=== PATIENT | male | born 1970 | race Caucasian/White ===

== ENCOUNTER → 2017-04-01 | Outpatient (CLI) | payer OTHER ==
[2015-11-28 16:03] VITALS: BP 144/85
[~2017-04-01] MED LIST: CITA40TA12 PO; GABA-586 PO; HYDR-2666 PO; SIMV20TA PO
--- NOTE | 2017-04-01 16:08 | RAD ---
Lumbar spine, 3 views, 04/01/2017: History: Chronic low back pain There is a mild right convexity lumbar scoliosis. There is a transitional-type vertebra at the lumbosacral junction level. No fracture or dislocation is identified. There are mild scattered marginal spurs. There are mild degenerative changes involving the facet joints in the lower lumbar spine. The paraspinous soft tissues are unremarkable. IMPRESSION: 1. Transitional-type vertebra at the lumbosacral junction. 2. Mild scattered degenerative changes. 3. Mild lumbar scoliosis
--- NOTE | 2017-04-01 16:09 | RAD ---
Cervical spine, 3 views, 04/01/2017: History: Chronic neck pain There is mild disc space narrowing and marginal spurring at C6-7 and C7-T1. There is mild posterior spurring at C3-4. There are mild to moderate degenerative changes involving scattered facet joints bilaterally. No acute fracture or dislocation is identified. The prevertebral soft tissues are unremarkable. IMPRESSION: 1. Mild to moderate scattered degenerative changes as described above. 2. No acute bony abnormality is detected.
== END | disposition home or self-care (01) ==
LOC: RAD 15:24
PROVIDERS: ATTEND Family Medicine
DX: M47.892 Other spondylosis, cervical region (principal); M54.9 Dorsalgia, unspecified; M41.86 Other forms of scoliosis, lumbar region
CPT/HCPCS: 72040; 72100

== ENCOUNTER → 2017-05-05 | Outpatient (CLI) | payer OTHER ==
[2015-11-28 16:03] VITALS: BP 144/85
[~2017-05-05] MED LIST changes: -HYDR-2666 PO; +HYDR-2758 PO
--- NOTE | 2017-05-05 09:49 | KCIC ---
MRI Cervical Spine Without Contrast History: Chronic neck pain, bilateral radiculopathy Technique: Multiplanar, multi sequential noncontrast MR imaging was performed of the cervical spine. Comparison: None Findings: There is motion degradation. Cervical cord caliber is within normal limits without obvious or expansile signal abnormality. There is moderate degenerative disc disease greater anteriorly C6-7. There is no significant abnormality of the cervical medullary junction. Vertebral body stature and AP alignment are adequate. There is no significant marrow edema. C2-C3: There is minimal disc osteophyte complex and protrusion eccentric to the far left lateral recess, very minimal narrowing of the far left lateral recess. There is left uncovertebral degenerative change. There is mjon-vs-detpsjeh narrowing of the left neural foramen, right normal foramen adequate. C3-C4: There is minimal disc osteophyte complex and bulge somewhat greater in the far left lateral recess. Central canal is adequate at 11 mm, mild indentation upon the ventral thecal sac in the far left lateral recess. There is uncovertebral degenerative change bilaterally greater on the left. There is moderate left facet degenerative change. There is fairly severe narrowing of the left neural foramen, mild to moderate narrowing on the right. C4-C5: Neural foramina and spinal canal are adequate. There is mild right facet hypertrophic change. C5-C6: Neural foramina and spinal canal are adequate. There is mild bilateral facet degenerative change. C6-C7: There is negligible disc osteophyte complex and bulge. Central canal is adequate 12 mm. There is mild uncovertebral degenerative change. There is [id number]-[id number] left and mild right neural foramina compromise. C7-T1: Neural foramina and spinal canal are adequate. Impression: 1. There is no significant cervical spinal stenosis, very mild narrowing of the far left lateral recess at C2-3. 2. There is multilevel facet and uncovertebral degenerative change, results in severe narrowing of the left C3-4 neural foramen, other ucrr-[id number] narrowing such as on the left at C2-3 and C6-7 and on the right at C3-4. 3. There is moderate degenerative disc disease greater anteriorly at C6-7. Electronically signed by: Ke Briones MD (05/05/2017 9:46 AM)
--- NOTE | 2017-05-05 10:00 | KCIC ---
MRI Lumbar Spine without contrast History: Lumbar stenosis, previous surgery 2011, numbness in feet Technique: Multiplanar, multi sequential noncontrast MR imaging was performed of the lumbar spine. Contrast: None Comparison: March 02, 2014 Findings: There again appears to be transitional anatomy. Most inferior fully formed intervertebral disc space is again considered L5-S1. Lumbar vertebral body stature and AP alignment are maintained. There is again tmyd-[id number] degenerative disc disease at L5-S1. Conus terminates normally at L1-L2. There is no significant marrow edema. L2-L3: Spinal canal and neural foramina are adequate. L3-L4: Neural foramina and spinal canal are adequate. There is mild facet hypertrophic change. L4-L5: There is mild facet hypertrophic change. Spinal canal and neural foramina are adequate. L5-S1: No contrast was given to evaluate for underlying enhancing fibrosis. There is again disc osteophyte complex, superimposed minimal probable bulge as seen previously without significant impingement of the descending S1 nerve roots. There is no significant narrowing of the lateral canal. There is very mild, right greater than left neural foramina compromise. Impression: 1. Findings are similar compared with 2013 exam. There again appears to be transitional anatomy with the most inferior fully formed intervertebral disc space considered L5-S1 at which there is vdnf-rw-kwavzieu degenerative disc disease and mild spondylosis. There is no new significant lumbar spinal stenosis. There is very mild L5-S1 neural foramina compromise greater on the right. Electronically signed by: Ke Briones MD (05/05/2017 9:57 AM)
== END | disposition home or self-care (01) ==
LOC: KCIC MRI 08:33
PROVIDERS: ATTEND Family Medicine
DX: M48.06 Spinal stenosis, lumbar region (principal); M50.321 Other cervical disc degeneration at C4-C5 level; M50.322 Other cervical disc degeneration at C5-C6 level; M50.323 Other cervical disc degeneration at C6-C7 level
CPT/HCPCS: 72141; 72148

== ENCOUNTER → 2017-07-02 | Outpatient (CLI) | payer OTHER ==
[2015-11-28 16:03] VITALS: BP 144/85
--- NOTE | 2017-07-02 16:38 | RAD ---
Left knee, 3 views, 07/02/2017: History: Postop evaluation Comparison is made to a study from 11/13/2015. A total knee prosthesis has been placed. It appears to be in satisfactory position. No fracture or dislocation is evident. A couple of small periarticular radiopacities are noted posteriorly compatible with cement and/or a bone fragment. There is moderate soft tissue swelling anteriorly. IMPRESSION: 1. The left total knee prosthesis is in satisfactory position. 2. No acute bony abnormality is detected.
== END | disposition home or self-care (01) ==
LOC: RAD 14:57
PROVIDERS: ATTEND Orthopaedic Surgery
DX: M79.89 Other specified soft tissue disorders (principal); Z96.652 Presence of left artificial knee joint
CPT/HCPCS: 73562

== ENCOUNTER 2018-11-02 15:12 | Emergency (ER) | payer OTHER ==
[~2018-11-02] VITALS: Ht 188 cm; Wt 120.2 kg
[~2018-11-02 15:12] MED LIST changes: -GABA-586 PO; +GABA300C18 PO; -HYDR-2758 PO; +HYDR-2761 PO
[2018-11-02 16:21] VITALS: BP 149/75
[2018-11-02] MEDS ORDERED: DIPHTH,PERTUSS(ACELL),TET TOX 0.5 ML DISP.SYRIN. VAX IM ONE (17:00)
[2018-11-02] MEDS ORDERED: LIDOCAINE 1% Multi-Dose 20 ML VIAL. INJ ONE (17:00)
--- NOTE | 2018-11-02 18:09 | PHYS DOC ---
Past Medical History Past Medical History: Depression, High Cholesterol, Hypertension, Other Additional Past Medical Histor: chronic pain Past Surgical History: Tonsillectomy, Other Additional Past Surgical Histo: shoulder sx x3,bilat knee sx x3, sinus sx, back sx Alcohol Use: Rarely Drug Use: None Adult General Chief Complaint Chief Complaint: LACERATION/AVULSION HPI HPI Patient is a 48 year old [f__sex] who presents with [] Review of Systems Review of Systems Constitutional: Denies fever or chills [] Eyes: Denies change in visual acuity, redness, or eye pain [] HENT: Denies nasal congestion or sore throat [] Respiratory: Denies cough or shortness of breath [] Cardiovascular: No additional information not addressed in HPI [] GI: Denies abdominal pain, nausea, vomiting, bloody stools or diarrhea [] : Denies dysuria or hematuria [] Musculoskeletal: Denies back pain or joint pain [] Integument: Denies rash or skin lesions [] Neurologic: Denies headache, focal weakness or sensory changes [] Endocrine: Denies polyuria or polydipsia [] All other systems were reviewed and found to be within normal limits, except as documented in this note. Current Medications Current Medications Current Medications Medications (Trade) Dose Ordered Sig/Nat Start Time Stop Time Status Last Admin Dose Admin Diphtheria/ Tetanus/Acell Pertussis (Boostrix) 0.5 ml ONCE ONCE 18 17:00 18 17:01 DC 18 17:36 0.5 ML Lidocaine HCl (Lidocaine 1% 20ml Vial) 20 ml 1X ONCE 11/02/18 17:00 18 17:01 DC 18 17:32 20 ML Allergies Allergies Allergies Coded Allergies Type Severity Reaction Last Updated Verified No Known Drug Allergies 03/02/14 No Physical Exam Physical Exam Constitutional: Well developed, well nourished, no acute distress, non-toxic appearance. [] HENT: Normocephalic, atraumatic, bilateral external ears normal, oropharynx moist, no oral exudates, nose normal. [] Eyes: PERRLA, EOMI, conjunctiva normal, no discharge. [] Neck: Normal range of motion, no tenderness, supple, no stridor. [] Cardiovascular:Heart rate regular rhythm, no murmur [] Lungs & Thorax: Bilateral breath sounds clear to auscultation [] Abdomen: Bowel sounds normal, soft, no tenderness, no masses, no pulsatile masses. [] Skin: Warm, dry, no erythema, no rash. [] Back: No tenderness, no CVA tenderness. [] Extremities: No tenderness, no cyanosis, no clubbing, ROM intact, no edema. [] Neurologic: Alert and oriented X 3, normal motor function, normal sensory function, no focal deficits noted. [] Psychologic: Affect normal, judgement normal, mood normal. [] Laceration Repair by me: 2200 Anesthesia: 1% lidocaine locally Location: Tendon/Joint/Nerves: No injury Foreign body: None detected after copious irrigation and exploration Technique: Simple Interrupted Sutures #2 5.0 nylon Complexity: No subcutaneous sutures/mucosal repair/edge excision Post Closure Length: 2 cm Patient's bleeding was easily controlled in the department and there is no indication of anemia. No evidence of compartment syndrome, neurologic injury, vascular injury, open joint, tendon laceration, or foreign body. Patient is appropriate for outpatient follow up. 48 hour wound check. Scar minimization instructions given. Current Patient Data Vital Signs Vital Signs Date Time Temp Pulse Resp B/P (MAP) Pulse Ox O2 Delivery O2 Flow Rate FiO2 11/02/18 16:21 98.7 92 16 149/75 (99) 98 Room Air 98.7 EKG EKG [] Radiology/Procedures Radiology/Procedures [] Course & Med Decision Making Course & Med Decision Making Pertinent Labs and Imaging studies reviewed. (See chart for details) [] Dragon Disclaimer Dragon Disclaimer This electronic medical record was generated, in whole or in part, using a voice recognition dictation system. Departure Departure Impression: Primary Impression: Laceration of left index finger Disposition: HOME, SELF-CARE Condition: STABLE Referrals: UNKNOWN PCP NAME (PCP) Patient Instructions: Laceration Care, Adult, Sutured Wound Care Additional Instructions: Monitor wound for signs of infection. Wear aluminum splint to support laceration site. Remove splint daily and perform range of motion with left index finger to prevent joint stiffness or locking. Follow-up with primary care physician in 7 days for suture removal. Tylenol and/or ibuprofen as needed for pain as directed on container. You can apply thin layer of triple antibiotic ointment to wound site twice a day until sutures are removed. SHANT CONTEH APRN Nov 02, 2018 18:09
== END 2018-11-02 18:15 | disposition home or self-care (01) ==
LOC: ER 15:12
DX: S61.211A Laceration without foreign body of left index finger without damage to nail, initial encounter (principal); E78.00 Pure hypercholesterolemia, unspecified; I10 Essential (primary) hypertension; G89.29 Other chronic pain; W27.8XXA Contact with other nonpowered hand tool, initial encounter; Y93.89 Activity, other specified; Y92.89 Other specified places as the place of occurrence of the external cause; Y99.8 Other external cause status
CPT/HCPCS: 12001; 90471; 90715; 99283-25

== ENCOUNTER 2019-05-15 16:04 | Emergency (ER) | payer OTHER ==
[~2019-05-15] VITALS: Ht 188 cm; Wt 115.7 kg
[2019-05-15 16:12] VITALS: BP 157/88
--- NOTE | 2019-05-15 16:43 | PHYS DOC ---
Past Medical History Past Medical History: Depression, High Cholesterol, Hypertension, Other Additional Past Medical Histor: chronic pain Past Surgical History: Tonsillectomy, Other Additional Past Surgical Histo: shoulder sx x3,bilat knee sx x3, sinus sx, back sx Alcohol Use: Rarely Drug Use: None Adult General Chief Complaint Chief Complaint: ANKLE PROBLEM HPI HPI Patient is a 49 year old male that presents with right ankle pain. The patient states that he felt a pop in his ankle when walking on Friday after he tripped and turned it. States he is turned 3 other times since that point including today. Rates his pain as 9 out of 10 in severity. The patient states he took a meloxicam at 2 PM today. Review of Systems Review of Systems Constitutional: Denies fever or chills [] Eyes: Denies change in visual acuity, redness, or eye pain [] HENT: Denies nasal congestion or sore throat [] Respiratory: Denies cough or shortness of breath [] Cardiovascular: No additional information not addressed in HPI [] GI: Denies abdominal pain, nausea, vomiting, bloody stools or diarrhea [] : Denies dysuria or hematuria [] Musculoskeletal: Denies back pain but reports R ankle pain. Integument: Denies rash or skin lesions [] Neurologic: Denies headache, focal weakness or sensory changes [] Endocrine: Denies polyuria or polydipsia [] Complete systems were reviewed and found to be within normal limits, except as documented in this note. Current Medications Current Medications Current Medications Medications (Trade) Dose Ordered Sig/Nat Start Time Stop Time Status Last Admin Dose Admin Acetaminophen/ Hydrocodone Bitart (Lortab 5/325) 1 tab 1X ONCE 05/15/19 16:45 05/15/19 16:46 DC 05/15/19 16:48 1 TAB Allergies Allergies Allergies Coded Allergies Type Severity Reaction Last Updated Verified No Known Drug Allergies 03/02/14 No Physical Exam Physical Exam Constitutional: Well developed, well nourished, no acute distress, non-toxic appearance. [] HENT: Normocephalic, atraumatic, bilateral external ears normal, oropharynx moist, no oral exudates, nose normal. [] Eyes: PERRLA, EOMI, conjunctiva normal, no discharge. [] Neck: Normal range of motion, no tenderness, supple, no stridor. [] Cardiovascular:Heart rate regular rhythm, no murmur [] Lungs & Thorax: Bilateral breath sounds clear to auscultation [] Abdomen: Bowel sounds normal, soft, no tenderness, no masses, no pulsatile masses. [] Skin: Warm, dry, no erythema, no rash. [] Back: No tenderness, no CVA tenderness. [] Extremities: Tenderness to R ankle, has edema, tenderness is to lateral side.[] Neurologic: Alert and oriented X 3, normal motor function, normal sensory function, no focal deficits noted. [] Psychologic: Affect normal, judgement normal, mood normal. [] Current Patient Data Vital Signs Vital Signs Date Time Temp Pulse Resp B/P (MAP) Pulse Ox O2 Delivery O2 Flow Rate FiO2 05/15/19 16:12 98.6 97 16 157/88 (111) 96 Room Air 98.6 EKG EKG [] Radiology/Procedures Radiology/Procedures X-ray interpreted by Dr. Sosa No acute findings.[] PATIENT: CIARRA JUARES ACCOUNT: [id number] : 1970 LOCATION: ER AGE: 49 SEX: M EXAM STATUS: REG ER ORD. PHYSICIAN: JESSICA JEAN APRN REASON: Twisred ankle, pain PROCEDURE: ANKLE RIGHT 3V Right ankle 3 views. HISTORY: Pain, twisted ankle 3 views were taken of the right ankle there is no acute fracture or osseous abnormality. IMPRESSION: 1. No acute fracture noted in the right ankle. Electronically signed by: José Sullivan MD (05/15/2019 5:27 PM) [facility] [place] Course & Med Decision Making Course & Med Decision Making Pertinent Labs and Imaging studies reviewed. (See chart for details) Will order an x-ray and give [place] for relief of pain. X-ray is negative. Will d/c home. Will place in carlos wrap. Gave discharge instructions for RICE. Will also give crutches. Dragon Disclaimer Dragon Disclaimer This electronic medical record was generated, in whole or in part, using a voice recognition dictation system. Departure Departure Impression: Primary Impression: Ankle pain, right Disposition: 01 HOME, SELF-CARE Condition: STABLE Referrals: JESSICA EDWARDS MD (PCP) JAGRUTI TOSCANO MD Patient Instructions: Ankle Pain, Elastic Bandage and RICE Additional Instructions: Thank you for visiting [facility]. We appreciate you trusting us with your care. If any additional problems come up don't hesitate to return to visit us. Please follow up with your primary care provider so they can plan additional care if needed and know about the problem that you had. If symptoms worsen come back to the Emergency Department. Any concerning symptoms that start such as chest pain, shortness of Air, weakness or numbness on one side of the body, running high fevers or any other concerning symptoms return to the ER. If pain persists, please follow up with your primary care doctor and/or orthopedics. Problem Qualifiers Primary Impression: Ankle pain, right Chronicity: acute Qualified Codes: M25.571 - Pain in right ankle and joints of right foot JESSICA JEAN APRN May 15, 2019 16:43
[2019-05-15] MEDS ORDERED: HYDROcodone/APAP 5/325MG 1 TAB TABLET PO ONE (16:45)
--- NOTE | 2019-05-15 17:30 | RAD ---
Right ankle 3 views. HISTORY: Pain, twisted ankle 3 views were taken of the right ankle there is no acute fracture or osseous abnormality. IMPRESSION: 1. No acute fracture noted in the right ankle. Electronically signed by: José Sullivan MD (05/15/2019 5:27 PM) [id number]
== END 2019-05-15 17:30 | disposition home or self-care (01) ==
LOC: ER 16:04
DX: M25.571 Pain in right ankle and joints of right foot (principal); G89.29 Other chronic pain; I10 Essential (primary) hypertension; E78.00 Pure hypercholesterolemia, unspecified; Z98.890 Other specified postprocedural states
CPT/HCPCS: 29515; 73610; 99284-25

== ENCOUNTER 2020-10-09 10:15 | Emergency (ER) | payer OTHER ==
[~2020-10-09] VITALS: Ht 188 cm; Wt 115.0 kg
[2020-10-09 11:47] VITALS: BP 164/85
[2020-10-09] MEDS ORDERED: TETANUS AND DIPHTHERIA TOX/PF 0.5 ML DISP.SYRIN. VAX IM ONE (12:00)
[2020-10-09] MEDS ORDERED: PIPERACILLIN/TAZOBACTAM 3.375 GM in IV NORMAL SALINE 50ML 50 ML IV ONE (12:00)
--- NOTE | 2020-10-09 12:43 | RAD ---
Study: CR HAND RIGHT 3V Indication: Hand laceration. Comparison: None. Findings: Laceration seen at the dorsum of the hand at the level of the metacarpophalangeal joints. No associated fracture or retained radiopaque foreign body. No findings by radiography that would suggest full-thickness extensor tendon disruption but this would be better assessed clinically. Impression: Dorsal hand laceration at the level of the MCP joints without an associated fracture or retained radiopaque foreign body. Electronically signed by: NATHAN FLOYD MD (10/09/2020 12:40 PM) [id number]
--- NOTE | 2020-10-09 12:50 | PHYS DOC ---
Past Medical History Past Medical History: Depression, High Cholesterol, Hypertension, Other Additional Past Medical Histor: chronic pain Past Surgical History: Tonsillectomy, Other Additional Past Surgical Histo: shoulder sx x3,bilat knee sx x3, sinus sx, back sx Smoking Status: Never Smoker Alcohol Use: Rarely Drug Use: None General Adult EDM: Chief Complaint: LACERATION/AVULSION HPI: HPI: Patient is a 50 year old male with history of depression, hypertension, high cholesterol, who presents to the ED today with right hand lacerations. Patient has a laceration on the right middle finger knuckle as well as right index finger. Patient states he was hanging a picture and tried pushing on the glass part of the frame he broke it driving his hand into the glass. He is right handed. Review of Systems: Review of Systems: Constitutional: Denies fever or chills. [] Musculoskeletal: Denies back pain or joint pain. [] Integument: Reports right hand lacerations Neurologic: Denies headache, focal weakness or sensory changes. [] Psychiatric: Denies depression or anxiety. [] Heart Score: Risk Factors: Risk Factors: DM, Current or recent (<one month) smoker, HTN, HLP, family history of CAD, obesity. Risk Scores: Score 0 - 3: 2.5% MACE over next 6 weeks - Discharge Home Score 4 - 6: 20.3% MACE over next 6 weeks - Admit for Clinical Observation Score 7 - 10: 72.7% MACE over next 6 weeks - Early Invasive Strategies Current Medications: Current Medications Medications (Trade) Dose Ordered Sig/[facility] Start Time Stop Time Status Last Admin Dose Admin Morphine Sulfate (Morphine Sulfate) 5 mg 1X ONCE 10/09/20 13:15 10/09/20 13:16 10/09/20 12:41 5 MG Piperacillin Sod/ Tazobactam Sod 3.375 gm/Sodium Chloride 50 ml @ 100 mls/hr 1X ONCE 10/09/20 12:00 10/09/20 12:29 DC 10/09/20 12:33 100 MLS/HR Tetanus/ Diphtheria Toxoids (Tenivac Syringe) 0.5 ml ONCE ONCE 10/09/20 12:00 10/09/20 12:07 DC 10/09/20 12:37 0.5 ML Allergies: Allergies: Allergies Coded Allergies Type Severity Reaction Last Updated Verified No Known Drug Allergies 03/02/14 No Physical Exam: PE: Constitutional: Well developed, well nourished, no acute distress, non-toxic appearance. [] Skin: Right index finger PIP joint with a laceration approximately 2 cm long, there is no obvious tendon involvement. Patient able to flex and extend the finger with no difficulties. Adequate radial sensation to the right index finge r. Right knuckle with a laceration approximately 3 cm long with obvious tendon cut. Patient's finger is in lax position and he is unable to extend it completely. He appears to have cut his extensor tendon. He has adequate sensation to the right middle finger. +2 right radial pulse. Cap refill less than 2 seconds the right fingers. Back: No tenderness, no CVA tenderness. [] Extremities: No tenderness, no cyanosis, no clubbing, ROM intact, no edema. [] Neurologic: Alert and oriented X 3, normal motor function, normal sensory function, no focal deficits noted. [] Psychologic: Affect normal, judgement normal, mood normal. [] Current Patient Data: Vital Signs: Vital Signs Date Time Temp Pulse Resp B/P (MAP) Pulse Ox O2 Delivery O2 Flow Rate FiO2 10/09/20 12:41 16 100 Room Air 10/09/20 11:47 98.7 62 164/85 (111) 98.7 EKG: EKG: [] Radiology/Procedures: Radiology/Procedures: []PROCEDURE: HAND RIGHT 3V Study: CR HAND RIGHT 3V Indication: Hand laceration. Comparison: None. Findings: Laceration seen at the dorsum of the hand at the level of the metacarpophalangeal joints. No associated fracture or retained radiopaque foreign body. No findings by radiography that would suggest full-thickness extensor tendon disruption but this would be better assessed clinically. Impression: Dorsal hand laceration at the level of the MCP joints without an associated fracture or retained radiopaque foreign body. Electronically signed by: NATHAN FLOYD MD (10/09/2020 12:40 PM) [id number] DICTATED and SIGNED BY: NATHAN FLOYD MD DATE: 10/09/20 [id number] 0 Course & Med Decision Making: Course & Med Decision Making Pertinent Labs and Imaging studies reviewed. (See chart for details) This is a 50-year-old male patient with right hand lacerations. One laceration on the right index finger, the other laceration on the right middle finger knuckle. Right middle finger knuckle has extensor tendon tear. Patient unable to extend the finger. Right hand x-rays are negative for any acute findings. He was given Zosyn and 2 doses of morphine in the ED as well as a tetanus shot. [id number] Spoke with who accepted patient at [facility]. Aamir Disclaimer: Aamir Disclaimer: This electronic medical record was generated, in whole or in part, using a voice recognition dictation system. Departure Departure Impression: Primary Impression: Laceration of right index finger Qualified Codes: S61.210A - Laceration without foreign body of right index finger without damage to nail, initial encounter Additional Impressions: Laceration of right middle finger Qualified Codes: S61.312A - Laceration without foreign body of right middle finger with damage to nail, initial encounter Laceration of finger, right, with tendon Qualified Codes: S61.219A - Laceration without foreign body of unspecified finger without damage to nail, initial encounter Disposition: 05 DC/TRF OTHER TYPE INSTITUTI Condition: STABLE Referrals: SADE SALAZAR MD (PCP) [facility] [employer] Oct 09, 2020 12:50
[2020-10-09] MEDS ORDERED: MORPHINE SULFATE 10 MG/ML VIAL. IV ONE ×2 (13:15→13:30)
== END 2020-10-09 14:27 | disposition short-term general hospital (02) ==
LOC: ER 10:15
DX: S61.312A Laceration without foreign body of right middle finger with damage to nail, initial encounter (principal); R20.2 Paresthesia of skin; F32.9 Major depressive disorder, single episode, unspecified; E78.00 Pure hypercholesterolemia, unspecified; I10 Essential (primary) hypertension; G89.29 Other chronic pain; Z90.89 Acquired absence of other organs; Z98.890 Other specified postprocedural states; W25.XXXA Contact with sharp glass, initial encounter; Y93.89 Activity, other specified; Y92.89 Other specified places as the place of occurrence of the external cause; Y99.8 Other external cause status
CPT/HCPCS: 73130; 90471; 90714; 96365; 96375; 96376; 99285; J2270; J2543

== ENCOUNTER → 2021-01-24 | Outpatient (CLI) | payer OTHER ==
--- NOTE | 2021-01-24 09:13 | RAD ---
EXAM: Right knee, 2 views. HISTORY: Pain. Disability determination. COMPARISON: None. FINDINGS: 2 views of the right knee are obtained. There is no fracture, dislocation or subluxation. T here is no joint effusion. IMPRESSION: No acute osseous finding. Electronically signed by: Tianna Aguirre MD (01/24/2021 9:10 AM) [id number]
== END ==
LOC: RAD 08:34
PROVIDERS: ATTEND Family Medicine
DX: M25.561 Pain in right knee (principal)
CPT/HCPCS: 73560

== ENCOUNTER 2021-07-25 01:02 | Emergency (ER) | payer OTHER ==
[~2021-07-25] VITALS: Ht 188 cm; Wt 120.5 kg
[2021-07-25] MEDS ORDERED: DIPH,PERTUSS(ACELL),TET VAC/PF 0.5 ML SYRINGE. VAX IM ONE (02:15)
[2021-07-25 02:39] VITALS: BP 115/58
[2021-07-25] MEDS ORDERED: AMOX1TAB61 PO (02:48)
--- NOTE | 2021-07-25 02:48 | PHYS DOC ---
Past Medical History Past Medical History: Depression, High Cholesterol, Hypertension, Other Additional Past Medical Histor: chronic pain Past Surgical History: Tonsillectomy, Other Additional Past Surgical Histo: shoulder sx x3,bilat knee sx x3, sinus sx, back sx Smoking Status: Never Smoker Alcohol Use: Rarely Drug Use: None General Adult EDM: Chief Complaint: ANIMAL BITE HPI: HPI: 51 yo M HTN, HLD, depression and insomnia presents to the ED with at bedside, (patient consents to his/her/their knowledge and involvement in pts' medical care), complaints of dog bite that occurred to the dorsum of his right foot just prior to ED arrival, around midnight. Patient was bitten by his own 4yo bull mastiff. Reports dogs' vaccinations are up-to-date including rabies and dog has been acting appropriately. Last tetanus was approximately 6 years ago. Reports he attempted cleaning his right foot with peroxide, then liquid bandage and then tape. Reports he took his Ambien prior to coming to the emergency department. Is up-to-date on his Covid vaccine. Review of Systems: Review of Systems: Constitutional: Denies fever or chills. [] Eyes: Denies change in visual acuity. [] HENT: Denies nasal congestion or sore throat. [] Respiratory: Denies cough or shortness of breath. [] Cardiovascular: Denies chest pain or edema. [] GI: Denies nausea, vomiting, Musculoskeletal: Denies back pain or joint swelling/deformity Integument: Denies rash or diaphoresis Neurologic: Denies focal weakness or sensory changes. [] Psychiatric: Denies depression or anxiety. [] Heart Score: C/O Chest Pain: No Risk Factors: Risk Factors: DM, Current or recent (<one month) smoker, HTN, HLP, family history of CAD, obesity. Risk Scores: Score 0 - 3: 2.5% MACE over next 6 weeks - Discharge Home Score 4 - 6: 20.3% MACE over next 6 weeks - Admit for Clinical Observation Score 7 - 10: 72.7% MACE over next 6 weeks - Early Invasive Strategies Current Medications: Current Medications Medications (Trade) Dose Ordered Sig/Nat Start Time Stop Time Status Last Admin Dose Admin Diphtheria/ Tetanus/Acell Pertussis (ADACEL TDap SYRINGE) 0.5 ml ONCE ONCE 07/25/21 02:15 07/25/21 02:16 DC Allergies: Allergies: Allergies Coded Allergies Type Severity Reaction Last Updated Verified No Known Drug Allergies 03/02/14 No Physical Exam: PE: Constitutional: Well developed, well nourished, no acute distress, non-toxic appearance. HENT: Normocephalic, atraumatic, Eyes: EOMI, conjunctiva normal, no discharge. Neck: Normal range of motion, supple, Cardiovascular: S1/2 present, regular rhythm Lungs & Thorax: Speaking in full sentences, bilateral equal chest rise, no tachypnea or increased work of breathing Skin: Warm, dry, no erythema, no rash. [] Extremities: 1.5-2cm abrasion over dorsum of patient's right mid foot with no underlying bone tenderness, right DP/PT pulses intact,No plantar ecchymosis sign Neurologic: Alert and oriented X 3, normal motor function, normal sensory function, no focal deficits noted. [] Psychologic: Affect normal, judgement normal, mood-joyish/happy/very active Current Patient Data: Vital Signs: Vital Signs Date Time Temp Pulse Resp B/P (MAP) Pulse Ox O2 Delivery O2 Flow Rate FiO2 07/25/21 01:40 106 20 116/76 (89) 96 Room Air 07/25/21 01:15 98.6 98.6 EKG: EKG: [] Radiology/Procedures: Radiology/Procedures: IMAGING REPORT Signed PATIENT: CIARRA JUARES ACCOUNT: [id number] : 1970 LOCATION: ER AGE: 51 SEX: M EXAM STATUS: DEP ER ORD. PHYSICIAN: SHANT GLASS DO REASON: dog bite PROCEDURE: FOOT RIGHT 3V XR FOOT_RIGHT 3 VIEWS History: Dog bite Comparison: None. Technique: 3 views of the right foot. Findings: Osseous mineralization is normal. No fracture or dislocaton. Mild degenerative changes of the anterior tibiotalar joint. Small plantar calcaneal enthesophyte. Bipartite medial first MTP sesamoid. Soft tissues are unremarkable. No radiopaque foreign body or subcutaneous emphysema. Impression: 1. No acute osseous abnormality of the right foot. No radiopaque foreign body. Electronically signed by: Ronal Farrell MD (07/25/2021 7:12 AM) [facility] DICTATED and SIGNED BY: RONAL FARRELL MD DATE: 07/25/21 [id number] 0 Course & Med Decision Making: Course & Med Decision Making Pertinent Labs and Imaging studies reviewed. (See chart for details) Concern for dog bite to right foot with no fracture seen on x-ray. Wound copiously irrigated and dressed. Patient was given wound care instructions for secondary intention. Will discharge home with strict ED return precautions were given for rash, fever, purulent drainage, worsening pain repeat injury. Encouraged urgent outpatient follow-up with PMD 1 to 2 days for wound check evaluation. Life-threatening processes were considered but are low suspicion at this time, given history, physical exam and ED workup. Pt was educated on all prescription medications and adverse effects. All patient's questions were answered and pt was stable at time of discharge. Life/limb-threatening differential includes but is not limited to, trauma (fracture, dislocation, laceration, compartment syndrome, tendon or ligament injury), neurovascular injury or deficitcva/tia, infection (osteomyelitis, abscess, cellulitis, septic arthritis, necrotizing fasciitis), deep vein thrombosis, renal/cardiac/liver disease, medication adverse effect, lymphedema/anasarca, vascular insufficiency or malignancy, I have spoken with the patient and/or caregivers. I explained the patient's condition, diagnoses and treatment plan based on the information available to me at this time. I have answered the patient and/or caregiver's questions and addressed any concerns. The patient and/or caregivers have a good understanding of patient's diagnosis, condition and treatment plan as can be expected at this point. Vital signs have been stable. Patient's condition is stable and ap propriate for discharge from the emergency department. Patient will pursue further outpatient evaluation with primary care physician or other designated or consulting physician as outlined in the discharge instructions. The patient and/or caregivers are agreeable to this plan of care and follow-up instructions have been explained in detail. The patient and/or caregivers have received these instructions in written form and have expressed an understanding of the discharge instructions. The patient and/or caregivers are aware that any significant change of condition or worsening of symptoms should prompt immediate return to this or the closest emergency department or call to 911. Aamir Disclaimer: Aamir Disclaimer: This electronic medical record was generated, in whole or in part, using a voice recognition dictation system. Departure Departure Impression: Primary Impression: Dog bite of right foot Additional Impression: Need for Tdap vaccination Disposition: HOME / SELF CARE / HOMELESS Condition: STABLE Referrals: SADE SALAZAR MD (PCP) Follow-up with your primary care physician in 24 to 48 hours OR FOLLOW UP WITH FAMILY MEDICINE: [address] [place] [address] Patient Instructions: Animal Bite, VIS, Tetanus, Diphtheria (Td); Tetanus, Diphtheria, Pertussis (Tdap) - CDC Additional Instructions: EMERGENCY DEPARTMENT GENERAL DISCHARGE INSTRUCTIONS Thank you for coming to [facility] Emergency Department (ED) today and trusting us with you care. We trust that you had a positive experience in our Emergency Department. If you wish to speak to the department management, you may call the Director at [phone]. YOUR FOLLOW UP INSTRUCTIONS ARE FOLLOWS: 1. Do you have a private Doctor? If you do not have a private doctor, please ask for a resource list of physicians or clinics that may be able to assist you with follow up care. 2. The Emergency Physicain has interpreted your x-rays. The X-Ray specialist will also review them. If there is a change in the findings, you will be notified in 48 hours when at all possible. 3. A lab test or culture has been done, your results will be reviewed and you will be notified if you need a change in treatment. ADDITIONAL INSTRUCTIONS AND INFORMATION: 1. Your care today has been supervised by a physician who is specially trained in emergency care. Many problems require more than one evaluation for a complete diagnosis and treatment. We recommend that you schedule your follow up appointment as recommended to ensure complete treatment of you illness or injury. If you are unable to obtain follow up care and continue to have a problem, or if your condition worsens, we recommend that you return to the ED. 2. We are not able to safely determine your condition over the phone nor are we able to give sound medical advice over the phone. For these safety reasons, if you call for medical advice we will ask you to come to the ED for further evaluation. 3. If you have any questions regarding these discharge instructions please call the ED at [phone]. SAFETY INFORMATION: In the interest of safety, wellness, and injury prevention; we encourage you to wear your sealbelt, if you smoke; quite smoking, and we encourage family to use a protective helmet for bicycling and other sporting events that present an increased risk for head injury. IF YOUR SYMPTOMS WORSEN OR NEW SYMPTOMS DEVELOP, OR YOU HAVE CONCERNS ABOUT YOUR CONDITION; OR IF YOUR CONDITION WORSENS WHILE YOU ARE WAITING FOR YOUR FOLLOW UP APPOINTM ENT; EITHER CONTACT YOUR PRIMARY CARE DOCTOR, THE PHYSICIAN WHOSE NAME AND NUMBER YOU WERE GIVEN, OR RETURN TO THE ED IMMEDIATELY. Scripts Amoxicillin/Potassium Clav (AUGMENTIN 875-125 TABLET) 1 Each Tablet 1 TAB PO Q12HR for 10 Days, #20 TAB Prov: SHANT GLASS DO 07/25/21 SHANT GLASS DO Jul 25, 2021 02:48
--- NOTE | 2021-07-25 07:14 | RAD ---
XR FOOT_RIGHT 3 VIEWS History: Dog bite Comparison: None. Technique: 3 views of the right foot. Findings: Osseous mineralization is normal. No fracture or dislocaton. Mild degenerative changes of the anterio r tibiotalar joint. Small plantar calcaneal enthesophyte. Bipartite medial first MTP sesamoid. Soft t issues are unremarkable. No radiopaque foreign body or subcutaneous emphysema. Impression: 1. No acute osseous abnormality of the right foot. No radiopaque foreign body. Electronically signed by: Ronal Hanna MD (07/25/2021 7:12 AM) [facility]
== END 2021-07-25 02:55 | disposition home or self-care (01) ==
LOC: ER 01:02
DX: S91.351A Open bite, right foot, initial encounter (principal); E78.00 Pure hypercholesterolemia, unspecified; I10 Essential (primary) hypertension; G89.29 Other chronic pain; W54.0XXA Bitten by dog, initial encounter; Y93.89 Activity, other specified; Y92.89 Other specified places as the place of occurrence of the external cause; Y99.8 Other external cause status
CPT/HCPCS: 73630; 90471; 90715; 99283-25